=== PATIENT | female | born 1970 | race Caucasian/White ===

== ENCOUNTER → 2016-08-09 | Outpatient (CLI) | payer BC, OTHER ==
[2016-08-09 07:52] LABS: HEMATOCRIT 42.1 % (37.0-47.0); HEMOGLOBIN 15.3 g/dL (12.0-16.0); MEAN CORPUSCULAR HEMOGLOBIN 32.8 PG (27-31); MEAN CORPUSCULAR HGB CONC 36.3 g/dL (33-37); MEAN PLATELET VOLUME 9.9 FL (7.4-12.2); RDW COEFFICIENT OF VARIATION 12.3 % (11.5-14.5); RED BLOOD COUNT 4.66 10^6/uL (4.20-5.40); WHITE BLOOD COUNT 6.45 10^3/uL (4.8-10.8)
[2016-08-09 08:10] LABS: HEMOGLOBIN A1C 5.35 % (4.2-6.0); MEAN BLOOD GLUCOSE (CALC) 92.155 mg/dL
[2016-08-09 08:11] LABS: CREATININE, URINE 53.1 MG/DL (15-500)
[2016-08-09 08:30] LABS: ASPARTATE AMINO TRANSFERASE 24 IU/L (8-39); BILIRUBIN,TOTAL 0.7 mg/dL (0.3-1.2); BLOOD UREA NITROGEN 16 mg/dL (7-22); BUN/CREATININE RATIO 17.77 (6-20); CALCIUM 8.8 mg/dL (8.7-10.7); CHLORIDE 107 meq/L (98-112); CREATININE 0.9 mg/dL (0.50-1.20); EST GLOMERULAR FILTRATION > 60 (>60 ml/min/1.73m(2)); GLUCOSE 102 mg/dL (78-110); HDL CHOLESTEROL 56 mg/dL (40-150); POTASSIUM 4.3 meq/L (3.8-5.2); SODIUM 141 meq/L (135-145); TOTAL PROTEIN 7.6 g/dL (6.1-8.0); TRIGLYCERIDES 102 mg/dL (44-200)
== END ==
LOC: LAB 07:27
PROVIDERS: ATTEND Family Medicine
DX: E11.9 Type 2 diabetes mellitus without complications (principal); E78.5 Hyperlipidemia, unspecified; I10 Essential (primary) hypertension; F17.210 Nicotine dependence, cigarettes, uncomplicated
CPT/HCPCS: 36415; 80053; 80061; 82043; 83036; 84443; 85027